=== PATIENT | male | born 1970 | race Caucasian/White ===

== ENCOUNTER → 2021-04-05 | Day surgery (SDC) | payer BC ==
[~2021-04-05] VITALS: Ht 188 cm; Wt 136.3 kg
[~2021-04-05] MED LIST: HYDROmorphone 2 MG/ML VIAL IVP PRN; IV RINGERS,LACTATED 1000ML 1,000 ML IV SCH; LIDOCAINE 2% PF 5 ML VIAL. ONE; LISI10TA16 PO; MORPHINE SULFATE 2 MG/ML INJ. IVP PRN; PROCHLORPERAZINE 10 MG/2 ML VIAL. IVP PRN; PROPOFOL 10 MG/ML (20ML) VIAL. IV ONE; fentaNYL PF VIAL 100 MCG/2 ML VIAL IVP PRN
[2021-04-05 11:45] VITALS: BP 149/81
[2021-04-05 13:19] VITALS: BP 149/91
--- NOTE | 2021-04-08 17:06 | PATHOLOGY ---
[facility] Accession Number: [id number] . 01 Material submitted: . cecum - CECAL POLYP . 01 Clinical history: . SCREENING, CRC SCREEN, FAMILY HX COL COLONOSCOPY . 02 Diagnosis: Colon biopsy, cecal polyp: - Tubular adenoma. (JPM:[facility]; 04/08/2021) S 04/08/2021 1054 Local . 02 Comment: There is no high grade dysplasia or evidence of malignancy. (JPM:[facility]; 04/08/2021) . 02 Electronically signed: . Brandin Luis MD, Pathologist NPI- [id number] . 01 Gross description: . The specimen is received in formalin, labeled "Brandin Moreira, cecal polyp". It consists of 2 owusu polypoid soft tissue fragments each measuring 0.4 cm in greatest dimension. The specimen is entirely submitted between sponges in A1. ([facility]; 04/05/2021) MFE/MFE 04/05/2021 1847 Local . 02 Pathologist provided ICD-10: D12.0 . 02 CPT . 878104 Specimen Comment: A courtesy copy of this report has been sent to [phone] Specimen Comment: Report sent to DR. FRANCO Performed at: 01 [facility] [address], [place], [place] [id number] MD Noe Robles MD Phone: [phone] Performed at: 02 [facility] [address] [place], [place] [id number] MD Brandin Luis MD Phone: [phone]
== END | disposition home or self-care (01) ==
LOC: ENDOS 11:16
PROVIDERS: ATTEND Surgery
DX: Z12.11 Encounter for screening for malignant neoplasm of colon (principal); D12.0 Benign neoplasm of cecum; K63.89 Other specified diseases of intestine; I10 Essential (primary) hypertension; G47.30 Sleep apnea, unspecified; Z80.0 Family history of malignant neoplasm of digestive organs; Z79.899 Other long term (current) drug therapy; Z88.0 Allergy status to penicillin
CPT/HCPCS: 45380; 88305; J2704